=== PATIENT | female | born 1985 | race African-American/Black ===

== ENCOUNTER 2016-12-11 09:10 | Emergency (ER) | payer OTHER ==
[~2016-12-11] VITALS: Ht 152.4 cm; Wt 90.7 kg
[2016-12-11] MEDS ORDERED: IBUP-97 PO (09:41)
[2016-12-11 11:04] LABS: PLATELET COUNT 319 K/uL (152-353)
[2016-12-11 11:17] LABS: POTASSIUM 3.8 mmol/L (3.6-5.2); SODIUM 136 mmol/L (136-145)
[2016-12-11 15:50] VITALS: BP 148/85; TEMP 98.1
== END 2016-12-11 15:50 | disposition home or self-care (01) ==
LOC: ED 09:10
PROVIDERS: Emergency Medicine
DX: R10.84 Generalized abdominal pain (principal)
CPT/HCPCS: 80053; 81000; 81025; 82150; 83690; 85027; 96361; 96374; 96375; 96376; 99284; J1170; J1885; J2270; J2405; Q9963

== ENCOUNTER 2017-09-24 11:59 | Observation (INO) | payer OTHER ==
[~2017-09-24] VITALS: Ht 162.6 cm; Wt 114.8 kg
[2017-09-24] VITALS (11 sets, daily range): BP systolic 105–149; BP diastolic 53–82; TEMP 97.8–98.8; Ht 162.6 cm; Wt 114.8 kg
[2017-09-24 06:10] LABS: PLATELET COUNT 331 K/uL (152-353)
[2017-09-24 06:24] LABS: POTASSIUM 3.2 mmol/L (3.6-5.2)
[~2017-09-24 11:59] MED LIST: IBUP-97 PO
[2017-09-25 06:30] LABS: PLATELET COUNT 266 K/uL (152-353)
[2017-09-25 07:40] LABS: POTASSIUM 3.8 mmol/L (3.6-5.2)
[2017-09-25 08:00] VITALS: BP 85/46; TEMP 98.7
[2017-09-25 11:49] VITALS: BP 110/61; TEMP 99.2
== END 2017-09-25 13:43 | disposition home or self-care (01) ==
LOC: OR 11:59 → MED/SURG 16:00
PROVIDERS: ADMIT Student in an Organized Health Care Education/Training Program
PROC: 0WUF0JZ Supplement Abdominal Wall with Synthetic Substitute, Open Approach (ICD-10-PCS; principal; 2017-09-24)
DX: K42.9 Umbilical hernia without obstruction or gangrene (principal)
CPT/HCPCS: 36415; 36591; 80048; 80053; 81000; 81025; 82150; 82948; 83605; 83690; 85027; 87040; 94760; 96361; 96365; 96372; 96375; 99220; 99284; C1729; C1781; G0378; J0132; J0330; J0500; J1100; J1170; J1644; J1885; J2001; J2175; J2250; J2405; J2543; J2704; J2710; J2765; J3010; J3490; J7120; Q9963; S0028